=== PATIENT | female | born 1985 | race Caucasian/White ===

== ENCOUNTER 2021-10-25 21:33 | Emergency (ER) | payer SELFPAY ==
[2021-10-25 22:53] VITALS: BP 124/71
[2021-10-26 00:55] LABS: Bilirubin,Urine NEG (Negative); Blood,Urine LG (Negative); Color,Urine Yellow (Yellow); Urobilinogen,Urine < 2.0 mg/dL (<2.0)
[2021-10-26 01:02] LABS: Bacteria,Urine 1+ /HPF (Negative); Mucus,Urine 2+ /HPF
== END 2021-10-26 12:37 | disposition left against medical advice (07) ==
LOC: ED 21:33
DX: O03.9 Complete or unspecified spontaneous abortion without complication (principal); Z53.21 Procedure and treatment not carried out due to patient leaving prior to being seen by health care provider; Z3A.00 Weeks of gestation of pregnancy not specified
CPT/HCPCS: 81001